=== PATIENT | male | born 1955 | race Caucasian/White ===

== ENCOUNTER → 2016-09-12 | Outpatient (CLI) | payer MEDICARE | LOC: CT 08:30 | DX: F17.210 Nicotine dependence, cigarettes, uncomplicated (principal); R91.8 Other nonspecific abnormal finding of lung field; R22.1 Localized swelling, mass and lump, neck; R59.0 Localized enlarged lymph nodes; J84.10 Pulmonary fibrosis, unspecified | CPT/HCPCS: G0297 ==

== ENCOUNTER → 2017-03-06 | Outpatient (CLI) | payer MEDICARE | LOC: CT 02-27 10:30 | DX: R59.0 Localized enlarged lymph nodes (principal); R93.2 Abnormal findings on diagnostic imaging of liver and biliary tract | CPT/HCPCS: 36415; 71260; 82565; J7050; Q9962 ==

== ENCOUNTER → 2020-06-27 | Outpatient (CLI) | payer MEDICARE, OTHER ==
[~2020-06-27] MED LIST: ALDACTONE25 MG PO; ALDACTONE50 MG PO; AMARYL 2MG TABLE2 MG PO; AMARYL4 MG PO; ASPIR 8181 MG PO; ATENOLOL50 MG PO; CATAPRES0.2 MG PO; FEOSOL325 MG PO; FLEXERIL 10 MG10 MG PO; GLUCOPHAGE1000 MG PO; HYDRALAZINE HC100 MG PO; HYDROXYCHLOROQ200 MG PO; IBUPROFEN600 MG PO; INSPRA50 MG PO; JARDIANCE25 MG PO; NORCO 5-325 TA1 EACH PO; NORVASC10 MG PO; PRAVASTATIN SOD10 MG PO; PROTONIX40 MG PO; Voltaren Gel 1 % TOP
[2020-06-27 10:05] LABS: RED BLOOD COUNT 3.56 M/UL (4.20-5.50); WHITE BLOOD COUNT 4.4 K/UL (4.5-11.0)
[2020-06-27 10:28] LABS: BUN/CREATININE RATIO 23 (0-10)
== END ==
LOC: CT 09:39
PROVIDERS: Internal Medicine Hematology & Oncology
DX: R63.4 Abnormal weight loss (principal); K76.89 Other specified diseases of liver; N40.0 Benign prostatic hyperplasia without lower urinary tract symptoms; D69.6 Thrombocytopenia, unspecified; D50.9 Iron deficiency anemia, unspecified; Q61.9 Cystic kidney disease, unspecified; R91.1 Solitary pulmonary nodule
CPT/HCPCS: 36415; 71260; 80053; 85025; 86301; Q9967

== ENCOUNTER 2020-07-31 17:18 | Emergency (ER) | payer MEDICARE, OTHER ==
[2020-07-31 18:01] LABS: HEMOGLOBIN 9.7 gm/dl (14.0-17.5); RED BLOOD COUNT 3.16 M/UL (4.20-5.50); WHITE BLOOD COUNT 3.4 K/UL (4.5-11.0)
[2020-07-31 18:47] LABS: BUN/CREATININE RATIO 35 (0-10)
== END 2020-07-31 21:32 | disposition home or self-care (01) ==
LOC: ER1 17:18
PROVIDERS: Family Medicine
DX: E11.65 Type 2 diabetes mellitus with hyperglycemia (principal); I10 Essential (primary) hypertension; Z85.00 Personal history of malignant neoplasm of unspecified digestive organ; Z88.8 Allergy status to other drugs, medicaments and biological substances
CPT/HCPCS: 36415; 80053; 82009; 82800; 82962; 83735; 85025; 96374; 99284

== ENCOUNTER → 2020-10-22 | Outpatient (CLI) | payer MEDICARE, OTHER ==
[2020-10-22 11:25] LABS: HEMOGLOBIN 7.9 gm/dl (14.0-17.5)
== END ==
LOC: LAB 10:26 → OPSV 10:26
PROVIDERS: Internal Medicine Hematology & Oncology
DX: C25.9 Malignant neoplasm of pancreas, unspecified (principal); C24.9 Malignant neoplasm of biliary tract, unspecified; D63.0 Anemia in neoplastic disease
CPT/HCPCS: 36591; 85014; 85018; 86850; 86900; 86901; J1642; J7050

== ENCOUNTER → 2020-10-25 | Outpatient (CLI) | payer MEDICARE, OTHER | LOC: OPSV 06:56 | DX: C25.3 Malignant neoplasm of pancreatic duct (principal) | CPT/HCPCS: 36430; 96374; 96375; J1642; J1940; J7050; P9016 ==

== ENCOUNTER → 2020-11-23 | Outpatient (CLI) | payer MEDICARE, OTHER ==
[~2020-11-23] VITALS: Ht 177.8 cm; Wt 73.9 kg
== END ==
LOC: OPSV 09:59
DX: C25.3 Malignant neoplasm of pancreatic duct (principal)
CPT/HCPCS: 36430; 85049; 86900; 86901; 96375; G0463; J1642; J2930; P9035

== ENCOUNTER → 2020-12-13 | Outpatient (CLI) | payer MEDICARE, OTHER ==
[~2020-12-13] VITALS: Ht 177.8 cm; Wt 73.9 kg
== END ==
LOC: OPSV 06:55
DX: D64.9 Anemia, unspecified (principal)
CPT/HCPCS: 36430; 96372; 96374; 96375; J1642; J1940; J7050; P9016; Q5108-TB

== ENCOUNTER → 2021-01-17 | Outpatient (CLI) | payer MEDICARE, OTHER | LOC: CT 08:08 | DX: R63.4 Abnormal weight loss (principal); D69.6 Thrombocytopenia, unspecified; D50.9 Iron deficiency anemia, unspecified; K76.89 Other specified diseases of liver | CPT/HCPCS: 71260; Q9967 ==

== ENCOUNTER → 2021-03-19 | Outpatient (CLI) | payer MEDICARE, OTHER ==
[2021-03-19 07:17] LABS: HEMOGLOBIN 8.3 gm/dl (14.0-17.5); RED BLOOD COUNT 2.67 M/UL (4.20-5.50); WHITE BLOOD COUNT 9.8 K/UL (4.5-11.0)
== END ==
LOC: US 06:58
PROVIDERS: Internal Medicine Hematology & Oncology
DX: R18.8 Other ascites (principal); K76.89 Other specified diseases of liver; R63.4 Abnormal weight loss; D69.6 Thrombocytopenia, unspecified; D50.9 Iron deficiency anemia, unspecified
CPT/HCPCS: 36415; 76700; 85027; 85610; 85730

== ENCOUNTER → 2021-04-18 | Outpatient (CLI) | payer MEDICARE, OTHER | LOC: CT 11:35 | DX: K76.89 Other specified diseases of liver (principal); R63.4 Abnormal weight loss; D69.6 Thrombocytopenia, unspecified; D50.9 Iron deficiency anemia, unspecified; K76.9 Liver disease, unspecified; R18.8 Other ascites; R16.1 Splenomegaly, not elsewhere classified | CPT/HCPCS: 36415; 82565; Q9967 ==

== ENCOUNTER → 2021-04-29 | Outpatient (CLI) | payer MEDICARE, OTHER ==
[~2021-04-29] VITALS: Ht 177.8 cm; Wt 73.9 kg
== END ==
LOC: OPSV 11:39
DX: C25.3 Malignant neoplasm of pancreatic duct (principal)
CPT/HCPCS: 36430; 85049; 86850; 86900; 86901; J1642; J2930; J7050; P9035

== ENCOUNTER → 2021-06-10 | Outpatient (CLI) | payer MEDICARE, OTHER ==
[~2021-06-10] VITALS: Ht 177.8 cm; Wt 73.9 kg
== END ==
LOC: OPSV 11:34 → LAB 11:34
DX: C25.3 Malignant neoplasm of pancreatic duct (principal)
CPT/HCPCS: 36415; 36430; 85049; 86900; 86901; 96375; J1642; J2930; J7050; P9035

== ENCOUNTER → 2021-07-10 | Outpatient (CLI) | payer MEDICARE, OTHER | LOC: US 11:00 → OPSV 11:18 → US 13:30 | DX: R18.8 Other ascites (principal) | CPT/HCPCS: 36415; 82040; Q9967 ==

== ENCOUNTER → 2021-07-25 | Outpatient (CLI) | payer MEDICARE, OTHER | LOC: OPSV 09:16 → US 10:00 | DX: C22.1 Intrahepatic bile duct carcinoma (principal); R18.8 Other ascites ==

== ENCOUNTER → 2021-08-08 | Outpatient (CLI) | payer MEDICARE, OTHER | LOC: US 10:00 | DX: R18.8 Other ascites (principal); R63.4 Abnormal weight loss; D69.6 Thrombocytopenia, unspecified; D50.9 Iron deficiency anemia, unspecified; K76.89 Other specified diseases of liver ==